=== PATIENT | male | born 1960 | race Caucasian/White ===

== ENCOUNTER 2019-06-02 05:36 | Day surgery (SDC) | payer OTHER ==
[~2019-06-02] VITALS: Ht 182.9 cm; Wt 101.5 kg
[~2019-06-02 05:36] MED LIST: FLON27.5; NORC1TAB7 PO; ROSU20TA5 PO
[2019-06-02] MEDS ORDERED: LIDOCAINE 2% MDV *ALTO* 20 ML VIAL ONE (05:37)
[2019-06-02] MEDS ORDERED: dexameTHASONE 10 MG/1 ML VIAL PRES.FREE (J1100) ONE (05:37)
[2019-06-02] MEDS ORDERED: ROPIvacaine 0.5% 30 ML INJECTION (J2795 PER 1MG) ONE (05:37)
[2019-06-02] MEDS ORDERED: LR 1,000 ML IV ONE (06:00)
[2019-06-02] MEDS ORDERED: fentaNYL 100 MCG/2 ML INJECTION (J3010) As Ordered ONE (07:02)
[2019-06-02] MEDS ORDERED: MIDAZOLAM INJ 2 MG/2 ML VIAL (J2250) As Ordered ONE ×2 (07:02→08:46)
[2019-06-02] MEDS ORDERED: MIDAZOLAM INJ 2 MG/2 ML VIAL (J2250) IV ONE (08:00)
[2019-06-02] MEDS ORDERED: fentaNYL 100 MCG/2 ML INJECTION (J3010) IV ONE (08:00)
[2019-06-02] MEDS ORDERED: LIDOCAINE 2% INJ 100 MG/5 ML SDV (FOR ANES.) As Ordered ONE (08:46)
[2019-06-02] MEDS ORDERED: fentaNYL 250 MCG/5 ML INJECTION (J3010) As Ordered ONE (08:46)
[2019-06-02] MEDS ORDERED: ONDANSETRON 4MG/2ML VIAL (J2405) As Ordered ONE (08:46)
[2019-06-02] MEDS ORDERED: PROPOFOL 200 MG/20 ML VIAL As Ordered ONE (08:46)
[2019-06-02] MEDS ORDERED: dexameTHASONE 4 MG/ML 1ML VIAL (J1100) As Ordered ONE (08:46)
[2019-06-02] MEDS ORDERED: PHENYLEPHRINE INJ 10MG/ML VIAL (J2370) As Ordered ONE (08:46)
[2019-06-02] MEDS ORDERED: ROCURONIUM BROMIDE 50 MG/5 ML VIAL As Ordered ONE ×2 (08:46→09:48)
[2019-06-02] MEDS ORDERED: PHENYLephrine HCL 500 MCG/5 ML (100MCG/ML) SYRINGE (J2370) As Ordered ONE ×2 (08:46→12:21)
[2019-06-02] MEDS ORDERED: ePHEDrine SULFATE 25 MG/5 ML(5MG/ML) SYRINGE As Ordered ONE (08:46)
[2019-06-02] MEDS ORDERED: SUGAMMADEX SODIUM 500 MG/5 ML VIAL (BRIDION) As Ordered ONE (08:49)
[2019-06-02] MEDS ORDERED: HYDROmorphone HCL 2 MG/ML 1ML VIAL (J1170) As Ordered ONE (09:37)
[2019-06-02] MEDS ORDERED: LR 1,000 ML IV SCH ×2 (12:00)
[2019-06-02] MEDS ORDERED: ONDANSETRON 4MG/2ML VIAL (J2405) IV PRN (12:00)
[2019-06-02] MEDS ORDERED: fentaNYL 100 MCG/2 ML INJECTION (J3010) IV PRN (12:00)
[2019-06-02] MEDS ORDERED: PERCOCET 5MG/325MG TAB PO PRN ×3 (12:00)
[2019-06-02] MEDS ORDERED: HYDROMORPHONE HCL 0.5 MG/ 0.5 ML SYRINGE (J1170 PER 1) IV PRN (12:00)
--- NOTE | 2019-06-02 12:56 | REP ---
Left ankle: Single view. History: Lateral ligament reconstruction. Intraoperative imaging. 47 seconds of fluoroscopy time is reported. Findings: A single lateral spot radiograph shows metallic pins overlying or within the talus. No laterality markers are visible. Electronically Signed by Vaibhav Whitley MD 06/02/2019 04:03 P
[2019-06-02 13:28] VITALS: BP 140/79
--- NOTE | 2019-06-06 18:48 | RO ---
DATE OF PROCEDURE: 06/02/2019 PREPROCEDURE DIAGNOSIS: Left ankle pain and instability, status post peroneus brevis stabilization procedure many years ago. POSTPROCEDURE DIAGNOSIS: Left ankle pain and instability, status post peroneus brevis stabilization procedure many years ago. PROCEDURE: 1. Takedown and debridement of prior peroneus brevis stabilization procedure, which included takedown of the peroneus brevis tendon from the fibula. 2. Peroneal brevis longus tenodesis. 3. Allograft lateral ligament reconstruction. SURGEON: Scarlet Fuentes MD TOW FEEDER: DEBORAH Rosenbaum ANESTHESIA: General endotracheal with popliteal (pop) block. SPECIMENS: Peroneus brevis. ESTIMATED BLOOD LOSS: 25 mL. COMPLICATIONS: None. CONDITION: Stable to recovery. IMPLANTS: Arthrex lateral ankle reconstruction kit with BioComposite tenodesis screws and a 5 mm semitendinosus allograft. INDICATIONS: Celestino Castañeda is a 59-year-old male who has had many years of increasing pain and instability to his left ankle. He had had surgery 10-20 years ago for peroneus brevis stabilization procedure to the left ankle. Given his increasing symptoms, the patient elected to proceed with surgery for takedown of the tendon transfer and new allograft lateral ligament reconstruction versus Brostrom procedure. He understands this is a revision procedure, and I cannot guarantee results. Risks and benefits of surgery were discussed with the patient in detail and include, but are not limited to infection, damage to nerves and blood vessels, continued pain and stiffness, need for additional procedures. Informed consent was obtained in the office. IV antibiotics were given within 60 minutes prior to incision. DESCRIPTION OF PROCEDURE: The patient was met in the preoperative holding area where his left lower extremity was marked as the correct operative site. He then underwent a popliteal nerve block by the anesthesia team. He was then taken to the operating room where he was placed in the lateral position on the operating room table. A beanbag was used in addition to an axillary roll. All bony prominences were well padded. The patient underwent general anesthesia without difficulty. A well-padded tourniquet was placed on the left upper thigh. Left lower extremity underwent a chlorhexidine scrub. It was then prepped and draped in the normal sterile fashion. An official time-out was held where the correct patient, operative side and operative procedures were verified. Following this, the patient's leg was exsanguinated using a 6-inch Esmarch and the tourniquet was inflated to 275 mmHg. It was up for 150 minutes. Using patient's prior surgical incision, the lateral aspect of the ankle was approached. Careful dissection was performed to avoid the superficial peroneal nerve proximally and the sural nerve distally. Distal fibula was first approached and peroneus brevis had been passed through the distal fibula from a posterior to anterior orientation. This was taken down from the fibula. The graft was not present in the anterior aspect of the fibula; however, there was some old suture material which was removed. There was significant tendosynovitis along the peroneal longus, which was also removed. Peroneus longus was encased in scar tissue; however, the tendon was viable. There was some degeneration throughout the tendon but overall was in fairly good shape and was intact in entirety. Following takedown of the peroneus brevis, there was significant instability to anterior drawer and talar tilt testing. Decision was made to proceed with an allograft lateral ligament reconstruction using the Arthrex kit. A 5 mm semitendinosus allograft was selected. Using the FiberLoop, a #2 FiberWire was whipstitched through the distal aspect of the tendon. Once the tendon was ready, it was placed on the back table in a sterile wet sponge. At this point, using the guidewire, I selected placement for my talar tunnel. This was approximately 10-14 mm from the tip of the fibula and directly lateral. Given the patient's anatomy, this was in the talar dome and not the talar neck. The patient did have quite a short talar neck, and this would have been quite off anatomically should I have placed my anchor there. The graft was secured using an Arthrex BioComposite Bio-Tenodesis screw into the appropriate position in the talus. I then drilled from proximal to distal at a slight diagonal through the distal fibula with care to avoid the prior site of the peroneus brevis transfer. The graft was then passed through the fibula tunnel. Following this, the graft was secured in the calcaneus posterior to the peroneal tubercle. Again, I used the Bio-Tenodesis screw in the calcaneus and one in the fibula. The graft had been tensioned in the patient's natural plantar flexion. Once the graft was secure, anterior drawer and talar tilt test were negative. The patient continued to have good range of motion in both dorsiflexion, plantar flexion and inversion and eversion. At this point, the patient's prior anterior talofibular ligament (ATFL) capsule remnant was secured back to the fibula using a combination of #2-0 and #2 FiberWire. This was further secured with #0 Vicryl. I did make the decision to perform a tenodesis of the distal aspect of the peroneus brevis, which was left and appeared to be healthy tissue. This was done in a [id number] manner using #2-0 FiberWire and horizontal mattress sutures. Following this, copious irrigation was performed. Soft tissues were closed using #3-0 Vicryl and #3-0 nylon. The patient was placed into a well-padded cast. He was extubated and taken to the recovery room in stable condition. PLAN: The patient will be non-weightbearing on the right lower extremity. He needs to be in a cast for at least a month. Following that, I would like him to get out of the cast and start working on range of motion. He must be non-weightbearing for at least 6 weeks. He will be on aspirin for deep vein thrombosis (DVT) prophylaxis.
== END 2019-06-02 13:28 | disposition home or self-care (01) ==
LOC: M SDC 05:36
PROVIDERS: ATTEND Orthopaedic Surgery
DX: M25.371 Other instability, right ankle (principal); M25.572 Pain in left ankle and joints of left foot; R01.1 Cardiac murmur, unspecified; Z91.030 Bee allergy status; Z79.899 Other long term (current) drug therapy
CPT/HCPCS: 27659; 64445; 76000; 88304; 97116; C1713; C1762; J0690; J1100; J1170; J2250; J2370; J2405; J2795; J3010